=== PATIENT | female | born 1975 | race Caucasian/White ===

== ENCOUNTER 2016-08-04 13:42 | Emergency (ER) | payer BC ==
[~2016-08-04] VITALS: Ht 152.4 cm; Wt 58.1 kg
[2016-08-04 14:10] VITALS: BP 108/67
--- NOTE | 2016-08-04 15:12 | NUR ---
PATIENT AMBULATED TO ER BED 3.
--- NOTE | 2016-08-04 15:19 | NUR ---
Patient being evaluated by physician at bedside.
[2016-08-04] MEDS ORDERED: IPRATROPIUM 0.02% 0.5 MG/2.5 ML NEBU INH ONE (15:20)
[2016-08-04] MEDS ORDERED: predniSONE 20 MG TAB PO ONE (15:20)
[2016-08-04] MEDS ORDERED: ALBUTEROL 0.083% 2.5 MG/3 ML NEBU INH ONE (15:20)
--- NOTE | 2016-08-04 15:30 | NUR ---
PATIENT PRESENTS TO ED WITH PT PRESENTS TO ER W/C/O COUGH X2 WEEKS. HX ASTHMA. DENIES N/V/D; SKIN IS PINK/WARM/DRY; AAOX4 WITH EVEN AND STEADY GAIT; LUNGS CLEAR BL; HR EVEN AND REGULAR; PT DENIES ANY FEVER, CP, SOB, AT THIS TIME; PATIENT STATES PAIN OF 0610 AT THIS TIME; VSS; PATIENT POSITIONED FOR COMFORT; HOB ELEVATED; BEDRAILS UP X2; BED DOWN. ER MD MADE AWARE OF PT STATUS.
[2016-08-04 16:23] VITALS: BP 110/68
--- NOTE | 2016-08-04 16:23 | NUR ---
Patient discharged with v/s stable. Written and verbal after care instructions given and explained. Patient alert, oriented and verbalized understanding of instructions. Ambulatory with steady gait. All questions addressed prior to discharge. ID band removed. Patient advised to follow up with PMD. Rx of ALBUTEROL AND PREDNISONE 20 MG given. Patient educated on indication of medication including possible reaction and side effects. Opportunity to ask questions provided and answered.
== END 2016-08-04 16:23 | disposition home or self-care (01) ==
LOC: MED 13:42
DX: J45.901 Unspecified asthma with (acute) exacerbation (principal); J02.9 Acute pharyngitis, unspecified
CPT/HCPCS: 71010; 94640; 99283; J7512; J7613; J7644